=== PATIENT | female | born 1980 | race Caucasian/White ===

== ENCOUNTER 2019-02-07 19:51 | Emergency (ER) | payer SELFPAY ==
[~2019-02-07] VITALS: Ht 160 cm; Wt 66.2 kg
[2019-02-07 20:20] VITALS: BP 132/76
--- NOTE | 2019-02-07 21:25 | NUR ---
38 Y/O FEMALE PRESENTS TO ED, C/O RLQ ABDOMINAL PAIN 10/01. PT STATES PAIN RADIATES TO RIGHT FLANK; PAIN STARTED THIS MORNING ALONG WITH BURNING SENSATION VOIDING. ABDOMEN IS SOFT/FLAT, TENDER ON RLQ WITH PAIN ON PALPATION. BS ACTIVE X4 QUADRANTS. PT DENIES N/V/D. PT DENIES ANY CHEST PAIN. NO SOB/RESPIRATORY DISTRESS NOTED. PT STABLE. ERMD AWARE. WILL CONTINUE TO MONITOR.
[2019-02-07] MEDS ORDERED: cefTRIAXone 1,000 MG in LIDOCAINE MPF 1% 2.1 ML IM ONE (21:30)
[2019-02-07] MEDS ORDERED: PHENAZOPYRIDINE 100 MG TAB PO ONE (21:30)
[2019-02-07 21:40] VITALS: BP 132/76
--- NOTE | 2019-02-07 21:40 | NUR ---
PT DISCHARGED WITH PAPERWORK. EDUCATED PT REGARDING D/C DIAGNOSIS AND INSTRUCTIONS. PT VERBALIZED UNDERSTANDING OF TEACHING. TOLD PT TO FOLLOW UP WITH PCP AND WHEN TO RETURN TO ED. PT STABLE CONDITION. ALL QUESTIONS ANSWERED.
== END 2019-02-07 21:40 | disposition home or self-care (01) ==
LOC: MED 19:51
DX: N39.0 Urinary tract infection, site not specified (principal); R03.0 Elevated blood-pressure reading, without diagnosis of hypertension
CPT/HCPCS: 81002; 81025; 96372; 99283; J0696; J2001